=== PATIENT | female | born 1990 | race Two or more races ===

== ENCOUNTER 2022-10-06 09:22 | Emergency (ER) | payer MEDICAID ==
[~2022-10-06] VITALS: Ht 165.1 cm; Wt 83.5 kg
--- NOTE | 2022-10-06 09:31 | NUR ---
PT IS IN ROOM #2B. DR HANEY EVALUATED THE PT.
[2022-10-06] MEDS ORDERED: IBUPROFEN 600 MG TABLET PO ONE (09:45)
[2022-10-06] MEDS ORDERED: IBUPROFEN 600 MG TABLET ONE (09:53)
[2022-10-06] MEDS ORDERED: IBUP-1955 PO (10:26)
[2022-10-06] MEDS ORDERED: TRAM50TA2 PO (10:26)
[2022-10-06 10:47] VITALS: BP 132/75
--- NOTE | 2022-10-06 10:47 | NUR ---
PT WAS D/C'd TO HOME. D/C INSTRUCTIONS GIVEN TO THE PT BY DR HANEY.
== END 2022-10-06 10:48 | disposition home or self-care (01) ==
LOC: ER 09:22
DX: S52.512A Displaced fracture of left radial styloid process, initial encounter for closed fracture (principal); V43.52XA Car driver injured in collision with other type car in traffic accident, initial encounter; Y92.410 Unspecified street and highway as the place of occurrence of the external cause
CPT/HCPCS: 73090; 73110; A4663